=== PATIENT | female | born 1990 ===

== ENCOUNTER → 2024-04-12 | Outpatient (CLI) | payer OTHER ==
[~2024-04-12] MED LIST: ACETAMINOPHEN; ALBU90OI INH; AZIT250 PO; CEPH500 PO; CODACE30 PO; DIPH25; ERYSTE250 PO; ERYT333ERA PO; HYDGUAL120 PO; IBUP800; [UNRECOGNIZED DRUG - REMARK]
[2024-04-12 20:13] LABS: Bacterial Vaginosis PCR Negative (NEGATIVE); Candida Group, PCR NOT DETECTED (NOT DETECT)
[2024-04-12 21:25] LABS: Candida glabrata-krusei, PCR DETECTED (NOT DETECT)
[2024-04-17 06:00] LABS: APTIMA MEDIA TYPE Urine; C. TRACHOMATIS BY TMA Negative (Negative); N. GONORRHOEAE BY TMA Negative (Negative); SPECIMEN SOURCE Urine
== END ==
LOC: LAB SHORT 17:38 → LAB 17:38
PROVIDERS: Physician Assistant
DX: Z13.0 Encounter for screening for diseases of the blood and blood-forming organs and certain disorders involving the immune mechanism (principal); N89.8 Other specified noninflammatory disorders of vagina
CPT/HCPCS: 87481; 87491; 87591; 87661; 87801

== ENCOUNTER 2025-02-19 10:18 | Emergency (ER) | payer SELFPAY ==
[~2025-02-19] VITALS: Ht 167.6 cm; Wt 81.7 kg
[2025-02-19 10:23] VITALS: BP 130/98
[2025-02-19 10:45] LABS: Source, Urine Voided
[2025-02-19 11:00] LABS: Appearance, Urine Turbid (Clear); Bilirubin, Urine Neg (Neg); Blood, Urine 4+ (Neg); Color, Urine Yellow (P-Yellow); Glucose Qualitative, Urine Neg (Neg); Ketones, Urine Neg (Neg); Leukocyte Esterase, Urine 3+ (Neg); Nitrite, Urine Neg (Neg); Protein, Urine 3+ (Neg); Specific Gravity, Urine 1.025 (1.003-1.022); Urobilinogen, Urine NORM (Normal)
[2025-02-19 11:06] LABS: Mucus Light (0-Heavy); Squamous Epithelial Cells Many /hpf (Few)
[2025-02-19 11:07] LABS: Bacteria Many /hpf; White Blood Cells, Urine 50-100 /hpf (0-5)
[2025-02-19] MEDS ORDERED: CEPH500 PO (12:03)
[2025-02-19] MEDS ORDERED: Cephalexin Monohydrate 500 MG Cap PO ONE (12:05)
== END 2025-02-19 12:26 | disposition home or self-care (01) ==
LOC: ER 10:18
PROVIDERS: Emergency Medicine
DX: N39.0 Urinary tract infection, site not specified (principal); F17.210 Nicotine dependence, cigarettes, uncomplicated; Z88.0 Allergy status to penicillin; Z79.899 Other long term (current) drug therapy
CPT/HCPCS: 81001; 81025; 87086; 99283; A9270